=== PATIENT | male | born 1985 | race African-American/Black ===

== ENCOUNTER 2024-12-16 05:55 | Emergency (ER) | payer MEDICAID ==
[~2024-12-16] VITALS: Ht 172.7 cm; Wt 73.0 kg
[2024-12-16 06:11] VITALS: O2SAT 100
[2024-12-16] MEDS ORDERED: METH-653 MT (08:12)
[2024-12-16] MEDS: IBUPROFEN 600MG TABLET PO ONE (08:22)
[2024-12-16 08:25] VITALS: BP 145/92; PULSE 78; RESP 18; TEMP 36.7; O2SAT 100
== END 2024-12-16 08:35 | disposition home or self-care (01) ==
LOC: ER 06:26
DX: M54.50 Low back pain, unspecified (principal)
CPT/HCPCS: 99283